=== PATIENT | male | born 1950 | race Caucasian/White ===

== ENCOUNTER 2018-09-27 10:15 | Inpatient (IN) ==
--- NOTE | 2018-09-25 12:12 | Anesthesiology Consultation ---
Date of Service September 25, 2018 Assessment & Plan (1) Encounter for pre-operative examination: *H/O DIFFICULT INTUBATION WITH LUMBAR SURGERY ~2010 PER PATIENT. RECORDS NOT AVAILABLE. PER PT SURGERY PROCEEDED BUT HE WAS TOLD HE WAS A DIFFICULT INTUBATION. REPORTS HE HAD SUBSEQUENT SURGERIES WITHOUT PROBLEMS WITH ANESTHESIA.* Chart Review Chart Review: Acceptable Risk for Surgery and Patient NOT seen in Pre Admission Testing History Surgery Operation Date: 09/27/18 10:55 Proposed Procedures p L4-L5, L5-S1 Revision Decompression and Fusion - Ned Diaz DO Height/Weight Height: 5 ft 11 in Weight: 117.934 kg Allergies Allergy/AdvReac Type Severity Reaction Status Date / Time latex Allergy Mild BLISTERS Verified 09/08/18 12:02 ciprofloxacin [From Cipro] Allergy Unknown SWELLING Verified 09/08/18 12:02 ALL OVER adhesive tape Allergy Blister Verified 09/08/18 12:02 Medications Home Medications Medication Instructions Recorded Confirmed Last Taken doxazosin 2 mg PO HS 05/21/18 09/08/18 06/26/18 19:00 fluticasone propionate [Flonase 2 spray INTRANASAL QPM 05/21/18 09/08/18 06/26/18 19:00 Allergy Relief] levothyroxine 50 mcg PO QAM 05/21/18 09/08/18 06/26/18 07:00 linaclotide 290 mcg PO QAM 05/21/18 09/08/18 06/26/18 07:00 metolazone 5 mg PO QAM 05/21/18 09/08/18 06/26/18 07:00 potassium chloride 80 mg PO BID 05/21/18 09/08/18 06/26/18 19:00 atorvastatin 20 mg PO PM 06/13/18 09/08/18 06/26/18 19:00 omeprazole 20 mg PO BID 06/13/18 09/08/18 06/27/18 03:00 torsemide 80 mg PO QAM 06/13/18 09/08/18 06/26/18 07:00 ascorbic acid (vitamin C) [Vitamin 1,000 mg PO DAILY 09/03/18 09/08/18 Unknown C] eplerenone 50 mg PO DAILY 09/08/18 09/08/18 Unknown febuxostat 80 mg PO DAILY 09/08/18 09/08/18 Unknown oxycodone-acetaminophen [Percocet] 2 tab PO Q4H PRN 09/08/18 09/08/18 Unknown Past Medical History Medical History CKD (chronic kidney disease), stage III (Chronic) Neurogenic claudication due to lumbar spinal stenosis (Chronic) Constipation (Chronic) Gout (Chronic) Gastro-esophageal reflux (Chronic) Obesity (Chronic) Kidney mass (Chronic) BPH (benign prostatic hyperplasia) (Chronic) Lumbar spinal stenosis (Chronic) Bilateral lower extremity edema (Chronic) Hypothyroidism (Chronic) Lumbosacral radiculopathy (Acute) Chronic back pain Cyst of left kidney UNDER OBSERVATION Depression Emphysema lung CXR 06/05/18 WNL Hyperlipidemia Hypertension Past Family History Family History Mother Family history of diabetes mellitus Aunt Family history of diabetes mellitus Past Surgical History Surgical History Status post total shoulder arthroplasty (Resolved) Hx laparoscopic cholecystectomy (Resolved) History of hernia repair (Resolved) Previous back surgery (Resolved) X 3-[place] [facility] AND PAST 2 [facility] 2010 History of removal of testicle (Resolved) HARDENED TESTICLE-"BENIGN" History of spinal surgery (Chronic) Difficult airway for intubation TOLD HE HAS A "RESTRICTED AIRWAY" WITH BACK SURGERY-[facility]-2010? WAS ABLE TO DO SURGERY BUT PT WAS TOLD INTUBATION MORE DIFFICULT THAN EXPECTED AT THE TIME PER PT. History of arthroscopy LEFT KNEE-NO PROBLEMS WITH ANESTHESIA (AFTER 2010) History of total hip arthroplasty LEFT History of total shoulder replacement LEFT [facility]-NO PROBLEMS WITH ANESTHESIA-(AFTER 2010) Past Anesthesia History Difficult Airway Social History Smoking Status: Former smoker tobacco type: cigarettes Do You Dip or Chew Tobacco: Yes (1 CAN/3 DAYS (ADVISED)) Smoking End Date: QUIT 37 YEARS AGO Hx Alcohol Use: No Hx Substance Use: No substance use type: does not use and prescription drug Testing Electrocardiogram Date: 06/05/18 Findings: + NSR @ (67) and + RBBB Chest X-Ray Date: 06/05/18 Findings: + NAD Laboratory Results 09/16/18 WBC: 9.5 H/H: 15.3/44.6 PLATELETS: 330 SODIUM: 139 POTASSIUM: 3.3 CHLORIDE: 97 CO2: 28 BUN: 23 CREATININE: 1.1 GLUCOSE: 119 Repeat K+ 04/05 = 3.8 PT: 13.7 INR: 1.0
[~2018-09-27 10:15] MED LIST: ACETAMINOPHEN 500 MG TAB PO SCH; ATROPINE SULFATE 0.1 MG/ML 10ML SYR IV PRN; CEFAZOLIN 3000MG 65 ML IV SCH; CeleBREX 200 MG CAP PO SCH; GABAPENTIN 300 MG PO SCH; LABETALOL HCL IV 5 MG/ML 20ML IV PRN; LR 15ML/HR IV SCH; MEPERIDINE HCL 25 MG/ML CARP IV PRN; ONDANSETRON INJ 2 MG/ML 2 ML VIAL IV PRN; PHENYLEPHRINE 100MCG/ML 5ML SYR IV PRN; ePHEDrine sulfate 50 MG/ML AMP IV PRN
--- NOTE | 2018-09-27 11:08 | History & Physical Bridge Note ---
Date of Service September 27, 2018 History & Physical Bridge Note I have examined the patient, reviewed the History & Physical and in the interval since the performance of the History & Physical I have noted the following changes of clinical significance: no changes noted
--- NOTE | 2018-09-27 11:10 | History & Physical Report ---
Date of Service September 27, 2018 Assessment & Plan (1) Lumbar spinal stenosis: Revision decompression and fusion L4-5 L5-S1 Present on Admission?: Yes History of Present Illness Chief Complaint: Back and leg pain Primary Care Provider: Tyrone Fuller MD 68-year-old male well-known to me that presents with chronic persistent back and leg pain. After failing extensive course of nonoperative care is here for surgical intervention. Allergies Allergy/AdvReac Type Severity Reaction Status Date / Time latex Allergy Mild BLISTERS Verified 09/27/18 10:29 ciprofloxacin [From Cipro] Allergy Unknown SWELLING Verified 09/27/18 10:29 ALL OVER adhesive tape Allergy Blister Verified 09/27/18 10:29 Home Medications Home Medications Medication Instructions Recorded Confirmed Type doxazosin 2 mg PO HS 05/21/18 09/27/18 History fluticasone propionate [Flonase 2 spray INTRANASAL QPM 05/21/18 09/27/18 History Allergy Relief] levothyroxine 50 mcg PO QAM 05/21/18 09/27/18 History linaclotide 290 mcg PO QAM 05/21/18 09/27/18 History metolazone 5 mg PO QAM 05/21/18 09/27/18 History potassium chloride 80 mg PO BID 05/21/18 09/27/18 History atorvastatin 20 mg PO PM 06/13/18 09/27/18 History omeprazole 20 mg PO BID 06/13/18 09/27/18 History torsemide 80 mg PO QAM 06/13/18 09/27/18 History ascorbic acid (vitamin C) [Vitamin 1,000 mg PO DAILY 09/03/18 09/27/18 History C] eplerenone 50 mg PO DAILY 09/08/18 09/08/18 History febuxostat 80 mg PO DAILY 09/08/18 09/08/18 History oxycodone-acetaminophen [Percocet] 2 tab PO Q4H PRN 09/08/18 09/08/18 History Past Med/Surg History Medical History CKD (chronic kidney disease), stage III (Chronic) Neurogenic claudication due to lumbar spinal stenosis (Chronic) Constipation (Chronic) Gout (Chronic) Gastro-esophageal reflux (Chronic) Obesity (Chronic) Kidney mass (Chronic) BPH (benign prostatic hyperplasia) (Chronic) Lumbar spinal stenosis (Chronic) Bilateral lower extremity edema (Chronic) Hypothyroidism (Chronic) Lumbosacral radiculopathy (Acute) Chronic back pain Cyst of left kidney UNDER OBSERVATION Depression Emphysema lung CXR 06/05/18 WNL Hyperlipidemia Hypertension Surgical History Status post total shoulder arthroplasty (Resolved) Hx laparoscopic cholecystectomy (Resolved) History of hernia repair (Resolved) Previous back surgery (Resolved) X 3-[place] [facility] AND PAST 2 [facility] 2010 History of removal of testicle (Resolved) HARDENED TESTICLE-"BENIGN" History of spinal surgery (Chronic) Difficult airway for intubation TOLD HE HAS A "RESTRICTED AIRWAY" WITH BACK SURGERY-[facility]-2010? WAS ABLE TO DO SURGERY BUT PT WAS TOLD INTUBATION MORE DIFFICULT THAN EXPECTED AT THE TIME PER PT. 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
[2018-09-27] MEDS ORDERED: BACITRACIN INJ 50,000 UNIT VIAL ONE (11:13)
[2018-09-27] MEDS ORDERED: BUPIVACAINE/EPINEPHRINE 0.5% MPF 1:200,000 30 ML VIAL ONE (11:13)
[2018-09-27] MEDS ORDERED: LIDOCAINE HCL 2% 2 ML VIAL/AMP(20MG/ML) INFIL ONE (11:21)
[2018-09-27] MEDS ORDERED: fentaNYL citrate 100 MCG/2 ML VIAL ONE ×3 (11:21→13:59)
[2018-09-27] MEDS ORDERED: PROPOFOL IV EMULSION 10 MG/ML 20 ML VIAL IV ONE (11:21)
[2018-09-27] MEDS ORDERED: SUCCINYLCHOLINE CHLORIDE 20 MG/ML 10 ML VIAL ONE ×2 (11:21→11:38)
[2018-09-27] MEDS ORDERED: SUCCINYLCHOLINE 100MG/5ML SYR ONE (11:38)
[2018-09-27] MEDS ORDERED: FLOSEAL HEMOSTATIC MATRIX 10ML TOP ONE (12:32)
[2018-09-27] MEDS ORDERED: ONDANSETRON INJ 2 MG/ML 2 ML VIAL ONE (13:13)
[2018-09-27] MEDS ORDERED: DEXAMETHASONE SOD INJ 4 MG/ML VIAL ONE (13:13)
[2018-09-27] MEDS ORDERED: CISATRACURIUM BESYLATE IV SOLN 2 MG/ML 10 ML VIAL IV ONE (13:13)
[2018-09-27] MEDS ORDERED: GLYCOPYRROLATE 0.2 MG/ML VIAL ONE (13:13)
[2018-09-27] MEDS ORDERED: NEOSTIGMINE METHYLSULFATE 1 MG/ML 10ML VIAL ONE (13:13)
--- NOTE | 2018-09-27 14:07 | Fluoroscopy Report ---
FL lumbar spine 2-3V CLINICAL HISTORY: L4-L5 DECOMPRESSION COMPARISON STUDY: CT scan dated 08/23/2018 FLUOROSCOPY TIME: 26 seconds. NUMBER OF FLUOROSCOPIC IMAGES: 2 FINDINGS: 2 intraoperative fluoroscopic spot images reveal postsurgical changes of an L4-5 discectomy and interbody fusion. There is posterior fusion with pedicle screw fixation with pedicle screws at t he L4, L5 and S1 levels with adjoining spinal rods. IMPRESSION: Postsurgical changes of an L4-5 compression and L4-S1 pedicle screw fusion Electronically signed by: Caden Valencia M.D. 09/27/2018 2:06 PM
--- NOTE | 2018-09-27 14:17 | Operative Report ---
Post Operative Report Pre & Post Diagnosis Operation Date: 09/27/18 10:55 Pre-Op Diagnosis: Neurogenic Claudication with Spinal Stenosis L4-L5, L5-S1 Post-Op Diagnosis: Neurogenic Claudication with Spinal Stenosis L4-L5, L5-S1 Procedure Operation Date: 09/27/18 10:55 Actual Procedures #1 revision decompression medial facetectomies foraminotomies L4-5 L5-S1 per #2 posterior spinal fusion L4-5 L5-S1 per #3 placed posterior instrumentation L4-5 L5-S1. #4 interbody fusion L4-5 per #5 placement of titanium 12 x 26 mm cage at L4-5. #6 placement of local autograft in the posterior lateral gutters. #7 placement infuse collagen sponge bone mass graft in the posterior lateral gutters and ostial amp and interbody space. Surgeon Ned Diaz DO Ash Conveyor Operator None Estimated Blood Loss 250 Findings Consistent with Post-Op Diagnosis Specimens None Description of Procedure Patient was met with preoperatively case discussed all questions addressed. Aft er informed consent obtained patient was taken to the operative suite underwent intubation and placed in a prone position on the Emre table on top of the Ariel frame. All bony prominences well-padded eyes inspected to ensure no external pressure placed upon the. This point the lumbar spine was prepped and draped in the normal sterile fashion. Sharp dissection with the assistance of Bovie cautery was performed down to and exposing the l remaining lamina and transverse processes of L4-L5 and sacral ala bilaterally. Then performed revision decompression with medial facetectomies at L4-5 L5-S1. Pedicle screws were then placed in L4-L5 and S1 levels bilaterally with assistance of fluoroscopy and the appropriate size ginette placed by way of a transforaminal approach on the right complete discectomy of L4-5 was performed and endplates curetted to subcortical bleeding bone and a 12 x 26 mm titanium cage filled with osteo-amp bone graft tapped in position. The rods were then locked in final position bilaterally. The transverse processes of L4-L5 and sacral ala bur to subcortical bleeding bone. Infuse collagen sponge mass graft local autograft was placed in the posterior lateral gutters. 15 round MARIBEL drain inserted. Incision was then closed with 1 Vicryl in the fascia 2-0 Vicryl subcutaneous and 4 Monocryl for final skin closure. Steri-Strip sterile dressings placed. Patient will continue to PACU stable condition. I attest to the content of the Intraoperative Record and any orders documented therein. Any exceptions are noted below.
[2018-09-27] MEDS: fentaNYL citrate 100 MCG/2 ML VIAL IV PRN ×4 (14:39→15:02)
[2018-09-27] MEDS: HYDROmorphone INJ 1 MG/ML SYRINGE IV PRN ×2 (15:08→15:13)
--- NOTE | 2018-09-27 15:23 | Anesthesiology Progress Note ---
Date of Service September 27, 2018 Anesthesia Post Procedure Vital Signs Vital Signs: Temp Pulse Pulse Resp BP Pulse Ox 09/27/18 15:15 80 20 126/86 95 09/27/18 15:05 77 15 128/83 95 09/27/18 14:55 78 15 132/84 97 09/27/18 14:45 76 15 129/85 97 09/27/18 14:35 76 13 138/89 98 09/27/18 14:27 36.2 C L 79 12 142/91 H 97 09/27/18 10:37 36.7 C 88 18 133/94 94 Pain Intensity Lower Back: Pain Intensity: 5 Notes Mental Status: alert / awake / arousable Patient Amnestic to Procedure: Yes Nausea / Vomiting: adequately controlled Pain: adequately controlled Airway Patency, RR, SpO2: stable & adequate BP & HR: stable & adequate Hydration State: stable & adequate Anesthetic Complications: no major complications apparent and Pt Satisfied with anesthetic care
[2018-09-27] MEDS ORDERED: BISACODYL 10 MG SUPP PR PRN (15:51)
[2018-09-27] MEDS ORDERED: ALUMINUM/MAGNESIUM SUSP 30 ML UDC PO PRN (15:51)
[2018-09-27] MEDS ORDERED: FAMOTIDINE 20 MG TAB PO PRN (15:51)
[2018-09-27] MEDS ORDERED: DO NOT ADMINISTER PNEUMOCOCCAL VACCINE PRN (15:51)
[2018-09-27] MEDS ORDERED: ACETAMINOPHEN 500 MG TAB PO PRN (15:51)
[2018-09-27] MEDS ORDERED: ACETAMINOPHEN 1,000 MG/100 ML VIAL IV PRN (15:51)
[2018-09-27] MEDS ORDERED: TRAMADOL HCL 50 MG TABLET PO PRN (15:51)
[2018-09-27] MEDS ORDERED: METOCLOPRAMIDE HCL INJ 5 MG/ML 2 ML VIAL IV PRN (15:51)
[2018-09-27] MEDS ORDERED: MAGNESIUM HYDROXIDE SUSP 30 ML UDC PO PRN (15:51)
[2018-09-27] MEDS ORDERED: ONDANSETRON INJ 2 MG/ML 2 ML VIAL IV PRN (15:51)
[2018-09-27] MEDS ORDERED: LORazepam 0.5 MG/1 ML VIAL IV PRN (15:51)
[2018-09-27] MEDS ORDERED: LORazepam 0.5 MG TAB PO PRN (15:51)
[2018-09-27] MEDS ORDERED: ONDANSETRON 4 MG TAB PO PRN (15:51)
[2018-09-27] MEDS ORDERED: PROMETHAZINE HCL 12.5 MG in SODIUM CHLORIDE 0.9% 50 ML IV PRN (15:51)
[2018-09-27] MEDS ORDERED: DO NOT ADMINISTER FLU VACCINE PRN (15:51)
[2018-09-27] MEDS ORDERED: HYDROmorphone INJ 0.5 MG/0.5 ML SYR IV PRN (15:51)
[2018-09-27] MEDS ORDERED: SOD PHOSPHATE/SOD BIPHOSPHATE ENEMA 132 ML BTL PR PRN (15:51)
--- NOTE | 2018-09-27 16:45 | Consultation ---
Date of Consultation September 27, 2018 Assessment & Plan (1) Status post lumbar surgery: Post op day# 0 S/P Lumbar decompression and fusion by Dr Diaz EBL #250ml -pain management per ortho -wound management per ortho -PT/OT as appropriate -DVT prophylaxis per ortho -incentive spirometry -monitor H&H for acute blood loss anemia (2) CKD (chronic kidney disease), stage III: Cr was 2 on 06/28/18 -monitor renal functions -limit/avoid NSAIDs (3) Hypothyroidism: -continue levothyroxine (4) Gastro-esophageal reflux: -continue PPI (5) Constipation: -continue linzess (6) Bilateral lower extremity edema: -hold metolazone, eplerenone, torsemide and reassess tomorrow (7) BPH (benign prostatic hyperplasia): -continue doxazosin DVT Prophylaxis -SCDs Follows with Dr Tyrone Fuller in [place] for routine care Pt was seen with Dr Bauer. See addendum Pt will be followed by Dr Hyde tomorrow. Thank you for this consultation. We will follow the patient with you during their hospital stay. You can reach a [facility] via pager @ [phone]. Supervising Physician Co-Signing Physician Notes Care coordinated with Shama CARROLL . Agree with above note. Patient seen and examined. Please refer to her notes for full details. Vital signs reviewed. Physical exam: General exam: Alert and oriented. Not in acute distress. CVS: S1 and S2 heard, regular rate and rhythm, no murmurs. RS: Clear to auscultation, no wheezing or crackles. ABD: Soft, bowel sounds present, nontender, no distention. SODA FOUNTAIN OPERATOR: Nonfocal. Musculoskeletal s/p back surgery EXT: No edema, no erythema. Labs: Reviewed. Assessment and plan: s/p Back Surgery tolerated procedure ok management as per ortho CKD stage 3 avoid nephrotoxic agents follow labs Lower ext edema holding diuretics can restart in am Other diagnosis and plan of care as per Shama newman MD. History of Present Illness Reason for Consultation: Post op medical management Attending Physician: Ned Diaz DO History of Present Illness Pt is 68 y/o M with PMH BLE edema, CKD III, obesity, GERD, hypothyroidism, chronic constipation, BPH seen in consult for post op medical management s/p decompression and fusion L4-S1 by Dr Diaz today. Post op pt doing well. Pain is controlled. Denies paresthesias or pain to BLE. Has yap cath in place. Last BM this am. Denies diaphoresis, N/V, MUÑOZ, dizziness, CP, SOB, cough, sore throat, choking, abdominal pain, rashes. Allergies Allergy/AdvReac Type Severity Reaction Status Date / Time latex Allergy Mild BLISTERS Verified 09/27/18 10:29 ciprofloxacin [From Cipro] Allergy Unknown SWELLING Verified 09/27/18 10:29 ALL OVER adhesive tape Allergy Blister Verified 09/27/18 10:29 Home Medications Home Medications Medication Instructions Recorded Confirmed Type doxazosin 2 mg PO HS 05/21/18 09/27/18 History fluticasone propionate [Flonase 2 spray INTRANASAL QPM 05/21/18 09/27/18 History Allergy Relief] levothyroxine 50 mcg PO QAM 05/21/18 09/27/18 History linaclotide 290 mcg PO QAM 05/21/18 09/27/18 History metolazone 5 mg PO QAM 05/21/18 09/27/18 History potassium chloride 80 mg PO BID 05/21/18 09/27/18 History atorvastatin 20 mg PO PM 06/13/18 09/27/18 History omeprazole 20 mg PO BID 06/13/18 09/27/18 History torsemide 80 mg PO QAM 06/13/18 09/27/18 History ascorbic acid (vitamin C) [Vitamin 1,000 mg PO DAILY 09/03/18 09/27/18 History C] eplerenone 50 mg PO DAILY 09/08/18 09/27/18 History febuxostat 80 mg PO DAILY 09/08/18 09/27/18 History oxycodone-acetaminophen [Percocet] 2 tab PO Q4H PRN 09/08/18 09/27/18 History Patient History Medical History CKD (chronic kidney disease), stage III (Chronic) Neurogenic claudication due to lumbar spinal stenosis (Chronic) Constipation (Chronic) Gout (Chronic) Gastro-esophageal reflux (Chronic) Obesity (Chronic) Kidney mass (Chronic) BPH (benign prostatic hyperplasia) (Chronic) Lumbar spinal stenosis (Chronic) Bilateral lower extremity edema (Chronic) Hypothyroidism (Chronic) Lumbosacral radiculopathy (Acute) Chronic back pain Cyst of left kidney UNDER OBSERVATION Depression Emphysema lung CXR 06/05/18 WNL Hyperlipidemia Hypertension Surgical History Status post total shoulder arthroplasty (Resolved) Hx laparoscopic cholecystectomy (Resolved) History of hernia repair (Resolved) Previous back surgery (Resolved) X 3-[place] [facility] AND PAST 2 [facility] 2010 History of removal of testicle (Resolved) HARDENED TESTICLE-"BENIGN" History of spinal surgery (Chronic) Difficult airway for intubation TOLD HE HAS A "RESTRICTED AIRWAY" WITH BACK SURGERY-[facility]-2010? WAS ABLE TO DO SURGERY BUT PT WAS TOLD INTUBATION MORE DIFFICULT THAN EXPECTED AT THE TIME PER PT. 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 Physical Exam Vital Signs (Past 24 Hours): Last Vital Signs Temp 36.4 C L 09/27/18 16:25 Pulse 80 09/27/18 16:25 Resp 16 09/27/18 16:25 BP 115/77 09/27/18 16:25 Pulse Ox 93 09/27/18 16:25 Physical Exam: General: no acute distress, WDWN Head: normocephalic, atraumatic Eyes: conjunctiva non-injected, anicteric ENT: normal inspection external ears, nose, mucous membranes moist Neck: supple, trachea midline Lungs: clear, no respiratory distress, no wheezing/rhonchi/rales CV: RRR, no murmur Abd: normal BS, soft, non-tender Ext: no cyanosis, no calf tenderness, no significant LE edema, bilateral pushes and pulls intact Neuro: A&O x 3, no focal deficits noted, normal affect, good spirits Skin: warm, dry
[2018-09-27] MEDS: SODIUM CHLORIDE 0.9% 1000ML 1,000 ML IV SCH ×2 (16:52→23:41)
[2018-09-27] MEDS: KETOROLAC TROMETHAMINE 15 MG/ML VIAL IV SCH ×2 (16:52→21:52)
[2018-09-27] MEDS: OXYCODONE HCL IR 5 MG TAB (IMMEDIATE RELEASE) PO PRN (19:56)
[2018-09-27] MEDS: CEFAZOLIN 2000MG 2,000 MG/15 ML SYR IV SCH (20:08)
[2018-09-27] MEDS: ATORVASTATIN 20 MG TAB PO SCH (20:09)
[2018-09-27] MEDS: DOCUSATE SODIUM/SENNA 50/8.6MG TAB PO SCH (20:09)
[2018-09-27] MEDS: PANTOprazole 40 MG TAB PO SCH (20:09)
[2018-09-27] MEDS: DOXAZosin MESYLATE TAB 2 MG TAB PO SCH (20:09)
[2018-09-27] MEDS: POTASSIUM CHLORIDE 20 MEQ TABCR PO SCH (20:09)
[2018-09-27] MEDS: FLUTICASONE PROPIONATE NA SPR 16 GM BTL SCH (20:10)
[2018-09-28] MEDS: KETOROLAC TROMETHAMINE 15 MG/ML VIAL IV SCH ×2 (04:20→08:59)
[2018-09-28] MEDS: CEFAZOLIN 2000MG 2,000 MG/15 ML SYR IV SCH (04:20)
[2018-09-28] MEDS: LEVOTHYROXINE SODIUM 50 MCG TABLET PO SCH (05:56)
[2018-09-28] MEDS: POLYETHYLENE (MIRALAX) 17 GM PACK PO SCH ×4 (05:56→23:15)
[2018-09-28] MEDS: SODIUM CHLORIDE 0.9% 1000ML 1,000 ML IV SCH (05:57)
[2018-09-28 06:09] LABS: Hematocrit (blood only) 38.5 % (42-52); Immature Granulocytes # (auto) 0.02 K/uL (0.00-0.02); Immature Granulocytes % (auto) 0.2 %; Lymphocytes # (auto) 0.58 K/uL (1.2-3.4); Lymphocytes % (auto) 4.8 %; Mean Corpuscular Hgb Conc 33.8 g/dL (32-36); Mean Corpuscular Volume 93.2 fL (80-100); Mean Platelet Volume 10.3 fL (7.4-10.4); Monocytes # (auto) 0.61 K/uL (0.11-0.59); Neutrophils # (auto) 10.88 K/uL (1.4-6.5); Platelet Count 185 K/uL (130-400); RDW Coefficient of Variation 12.9 % (11.5-14.5); RDW Standard Deviation 43.9 fL (36.4-46.3); Red Blood Count 4.13 M/uL (4.7-6.1); White Blood Count 12.09 K/uL (4.8-10.8)
[2018-09-28 06:35] LABS: BUN Creatinine Ratio 13.8 (10-20); Calcium 8.2 mg/dl (8.5-10.1); Creatinine Clr Calc Pharmacy 54.3 ml/min; Est GFR (African American) 47.3; Est GFR (Non-African American) 40.8; Potassium 3.5 mmol/L (3.5-5.1)
[2018-09-28] MEDS: LINZESS PO SCH (07:14)
[2018-09-28] MEDS: FEBUXOSTAT 40 MG TABLET PO SCH (08:59)
[2018-09-28] MEDS ORDERED: metOLazone 5 MG TABLET PO SCH (09:00)
[2018-09-28] MEDS: PANTOprazole 40 MG TAB PO SCH ×2 (09:00→20:14)
[2018-09-28] MEDS: ASCORBIC ACID 500 MG TAB PO SCH (09:00)
[2018-09-28] MEDS ORDERED: TORSEMIDE 20 MG TAB PO SCH (09:00)
[2018-09-28] MEDS: POTASSIUM CHLORIDE 20 MEQ TABCR PO SCH ×2 (09:00→20:13)
--- NOTE | 2018-09-28 09:25 | Orthopedic Progress Note ---
Date of Service September 28, 2018 Assessment & Plan (1) Lumbosacral radiculopathy: At this point will initiate physical therapy advance his bowel regimen anticipate discharge home in the next few days. Present on Admission?: Yes Physical Exam Vital Signs (Past 24 Hours): Last Vital Signs Temp 36.5 C 09/28/18 07:24 Pulse 72 09/28/18 07:24 Resp 18 09/28/18 07:24 BP 101/67 09/28/18 07:24 Pulse Ox 92 09/28/18 07:24 Physical Exam: Patient is good strength testing appears quite comfortable
--- NOTE | 2018-09-28 12:52 | Anesthesiology Progress Note ---
Date of Service September 28, 2018 Anesthesia Post Procedure Vital Signs Vital Signs: Temp Pulse Pulse Resp BP BP Pulse Ox 09/28/18 11:00 93 09/28/18 07:24 36.5 C 72 18 101/67 92 09/28/18 03:17 36.4 C L 76 16 102/69 92 09/27/18 23:14 36.5 C 79 16 104/66 91 09/27/18 19:35 36.5 C 89 16 114/75 91 09/27/18 18:00 36.6 C 95 H 20 113/71 94 09/27/18 16:57 36.5 C 81 16 112/79 95 09/27/18 16:25 36.4 C L 80 16 115/77 93 09/27/18 15:25 36.1 C L 82 17 129/83 95 09/27/18 15:15 80 20 126/86 95 09/27/18 15:05 77 15 128/83 95 09/27/18 14:55 78 15 132/84 97 09/27/18 14:45 76 15 129/85 97 09/27/18 14:35 76 13 138/89 98 09/27/18 14:27 36.2 C L 79 12 142/91 H 97 Pain Intensity Lower Back: Pain Intensity: 2 Notes Mental Status: alert / awake / arousable and participated in evaluation Patient Amnestic to Procedure: Yes Nausea / Vomiting: adequately controlled Pain: adequately controlled Airway Patency, RR, SpO2: stable & adequate BP & HR: stable & adequate Hydration State: stable & adequate Anesthetic Complications: no major complications apparent and Pt Satisfied with anesthetic care
--- NOTE | 2018-09-28 18:30 | Hospitalist Progress Note ---
Date of Service September 28, 2018 Assessment & Plan (1) Status post lumbar surgery: S/P daksha 1 Lumbar decompression and fusion by Dr Diaz Continue pain control Incentive spirometry PT/OT Monitor CBC (2) CKD (chronic kidney disease), stage III: Cr was 2 on 06/28/18 Creatinine 1.6 today Avoid nephrotoxic agents Monitor BMP (3) Hypothyroidism: continue levothyroxine (4) Gastro-esophageal reflux: Continue PPI (5) Constipation: continue linzess (6) Bilateral lower extremity edema: Will resume metolazone, eplerenone, torsemide in am (7) BPH (benign prostatic hyperplasia): continue doxazosin DVT Prophylaxis as per ortho CODE STATUS FULL CODE Subjective Pt was seen and examined Sitting in chair with no distress Pt said that he feels fine He said that he does not have any pain He said that he is able to feel his Leg now He said that he walked in the hallway Denies any chest pain, palpitation and sob Physical Exam Vital Signs (Past 24 Hours): Last Vital Signs Temp 36.5 C 09/28/18 15:07 Pulse 66 09/28/18 15:07 Resp 18 09/28/18 15:07 BP 105/70 09/28/18 15:07 Pulse Ox 94 09/28/18 15:07 Physical Exam: General- No acute distress Head- atraumatic Eyes- PERRL, EOMI, ENT- oropharynx clear Neck- supple, no JVD Lungs- clear to auscultation Heart- regular rhythm; no murmur Abdomen- normal bowel sounds, soft, nontender Extremities- no calf tenderness Neuro- alert, oriented x 3; PERRL, EOMI; no facial palsy; no dysarthria Skin- warm & dry
[2018-09-28] MEDS: DOXAZosin MESYLATE TAB 2 MG TAB PO SCH (20:13)
[2018-09-28] MEDS: FLUTICASONE PROPIONATE NA SPR 16 GM BTL SCH (20:13)
[2018-09-28] MEDS: ATORVASTATIN 20 MG TAB PO SCH (20:14)
[2018-09-28] MEDS: DOCUSATE SODIUM/SENNA 50/8.6MG TAB PO SCH (20:14)
[2018-09-28] MEDS: OXYCODONE HCL IR 5 MG TAB (IMMEDIATE RELEASE) PO PRN (20:49)
[2018-09-29] MEDS: OXYCODONE HCL IR 5 MG TAB (IMMEDIATE RELEASE) PO PRN ×3 (02:23→17:48)
[2018-09-29] MEDS: POLYETHYLENE (MIRALAX) 17 GM PACK PO SCH ×2 (05:57→12:14)
[2018-09-29] MEDS: LEVOTHYROXINE SODIUM 50 MCG TABLET PO SCH (05:57)
[2018-09-29] MEDS: LINZESS PO SCH (07:38)
[2018-09-29] MEDS: PANTOprazole 40 MG TAB PO SCH ×2 (08:40→20:36)
[2018-09-29] MEDS: FEBUXOSTAT 40 MG TABLET PO SCH (08:40)
[2018-09-29] MEDS: ASCORBIC ACID 500 MG TAB PO SCH (08:40)
[2018-09-29] MEDS: POTASSIUM CHLORIDE 20 MEQ TABCR PO SCH ×2 (08:40→20:34)
--- NOTE | 2018-09-29 11:34 | Orthopedic Progress Note ---
Date of Service September 29, 2018 Assessment & Plan (1) Lumbosacral radiculopathy: This time we will continue physical therapy and monitor his MARIBEL output. We anticipate discharge home tomorrow. Present on Admission?: Yes Physical Exam Vital Signs (Past 24 Hours): Last Vital Signs Temp 36.4 C L 09/29/18 07:35 Pulse 61 09/29/18 07:35 Resp 18 09/29/18 07:35 BP 116/73 09/29/18 07:35 Pulse Ox 97 09/29/18 07:35 Physical Exam: Patient is sitting in chair at the bedside. Is good strength testing. Appears comfortable.
--- NOTE | 2018-09-29 19:15 | Hospitalist Progress Note ---
Date of Service September 29, 2018 Assessment & Plan (1) Status post lumbar surgery: S/P daksha 2 Lumbar decompression and fusion by Dr Diaz Continue pain control Incentive spirometry PT/OT Monitor CBC (2) CKD (chronic kidney disease), stage III: Cr was 2 on 06/28/18 Creatinine improved to 1.6 Avoid nephrotoxic agents Stable (3) Hypothyroidism: continue levothyroxine (4) Gastro-esophageal reflux: Continue PPI (5) Constipation: continue linzess (6) Bilateral lower extremity edema: Resume in torsemide in am Will hold metolazone, eplerenone for now (7) BPH (benign prostatic hyperplasia): continue doxazosin DVT Prophylaxis as per ortho CODE STATUS FULL CODE Subjective Pt was seen and examined Sitting in chair no distress Pt said that he feels fine He said he has been walking in the hallway Denies any chest pain, palpitation, dizziness and SOB Physical Exam Vital Signs (Past 24 Hours): Last Vital Signs Temp 36.5 C 09/29/18 15:19 Pulse 65 09/29/18 15:19 Resp 18 09/29/18 15:19 BP 134/79 09/29/18 15:19 Pulse Ox 96 09/29/18 15:19 Physical Exam: General- No acute distress Head- atraumatic Eyes- PERRL, EOMI, ENT- oropharynx clear Neck- supple, no JVD Lungs- clear to auscultation Heart- regular rhythm; no murmur Abdomen- normal bowel sounds, soft, nontender Extremities- no calf tenderness Neuro- alert, oriented x 3; PERRL, EOMI; no facial palsy; no dysarthria Skin- warm & dry
[2018-09-29] MEDS: DOCUSATE SODIUM/SENNA 50/8.6MG TAB PO SCH (20:34)
[2018-09-29] MEDS: DOXAZosin MESYLATE TAB 2 MG TAB PO SCH (20:35)
[2018-09-29] MEDS: ATORVASTATIN 20 MG TAB PO SCH (20:35)
[2018-09-29] MEDS: FLUTICASONE PROPIONATE NA SPR 16 GM BTL SCH (20:36)
[2018-09-30] MEDS: LEVOTHYROXINE SODIUM 50 MCG TABLET PO SCH (05:52)
[2018-09-30] MEDS: OXYCODONE HCL IR 5 MG TAB (IMMEDIATE RELEASE) PO PRN ×2 (07:11→11:29)
[2018-09-30] MEDS: LINZESS PO SCH (07:13)
[2018-09-30] MEDS: PANTOprazole 40 MG TAB PO SCH (08:40)
[2018-09-30] MEDS: FEBUXOSTAT 40 MG TABLET PO SCH (08:40)
[2018-09-30] MEDS: POTASSIUM CHLORIDE 20 MEQ TABCR PO SCH (08:40)
[2018-09-30] MEDS: ASCORBIC ACID 500 MG TAB PO SCH (08:41)
--- NOTE | 2018-09-30 10:15 | Discharge Summary ---
Date of Service September 30, 2018 Admission HPI Per Admitting Provider 68-year-old male well-known to me that presents with chronic persistent back and leg pain. After failing extensive course of nonoperative care is here for surgical intervention. Principal Diagnosis Lumbar spinal stenosis with radiculopathy Discharge Data Allergies Allergy/AdvReac Type Severity Reaction Status Date / Time latex Allergy Mild BLISTERS Verified 09/27/18 10:29 ciprofloxacin [From Cipro] Allergy Unknown SWELLING Verified 09/27/18 10:29 ALL OVER adhesive tape Allergy Blister Verified 09/27/18 10:29 Consultations 09/27/18 15:51 Consult Case Management - Discharge Planning Routine Consult Hospitalist Routine Procedures Performed Operation Date: 09/27/18 10:55 Actual Procedures p L4-L5, L5-S1 Revision Decompression and Instrumented Fusion with Application of Bone Morphogenetic Protein, Osteoamp Allograft and Interbody Fusion L4-L5(Not Applicable) - Ned Diaz DO Ordered Studies 09/27/18 10:55 FL fluoroscopy <1hr Routine FL lumbar spine 2-3V Routine Hospital Course (1) Lumbosacral radiculopathy: Patient underwent lumbar decompression fusion tolerated as well as taken the orthopedic floor postoperative. Postop day 1 he was up and ambulating nicely progressed to postop day 2. MARIBEL drain decreasing probably. Subsequently discharged home on postop day #3. Discharge orders and instructions found in the chart for further review. Total Time Total Time Spent Total Time Spent (In Minutes): Not applicable Discharge Plan Discharge Items Patient Disposition: Home - Self-Care Reason For Visit: LUMBAR SPINAL STENOSIS W/NEUROGENIC CLAUDICATION Discharge Diagnosis: lumbar stenosis Discharge Goals: Decrease discomfort Activity: Per 'Additional Instructions' section Non-emergency contact: Primary Care Provider Call non-emergency contact if: you have any medication questions Follow-up/Referrals: Tyrone Fuller MD [Primary Care Provider] - Diet: Regular Addtl Provider Instructions: ACTIVITY RECOMMENDATIONS: SELF CARE INSTRUCTIONS AFTER THORACIC/LUMBAR FUSIONS 1. You may walk to your tolerance. It is good exercise for your legs and back. Expect some back and intermittent leg aches and pains. 2. You may perform "counter-top" level activities (make a sandwich, kristen with a project, etc.). 3. No bending or lifting of more than 10 pounds or back twisting of any nature (roll like a log when turning in bed). 4. You may ride in a car for 20-30 minutes at a time. No driving until after your first visit with your doctor. 5. Frequent changes of position and restricting sitting to 30 minutes at a time will help limit the amount of back spasms and stiffness you may experience. 6. You may discontinue the use of ambulatory aids (cane, crutches, etc.) once your strength and confidence allow. 7. You may etcher machine the shower and let water strike your incision when you arrive home at least once daily. Do not take a tub bath, sit in a hot tub or go into a swimming pool until after your first recheck in the office. SPECIAL CARE INSTRUCTIONS: VERY IMPORTANT TO READ AND REVIEW A. Your surgical incision has been closed with a cosmetic suture under the skin that will dissolve in about 6 weeks. In 14 days, you can use a pair of clean scissors and cut the suture that is left outside of the skin at the ends of your incision. 1. The small skin tapes can be removed 7 days after surgery if they have not fallen off by that point. 2. You may keep the wound open to air as much as possible to promote healing after post-op day number 5 unless told otherwise by your doctor. 3. If you think the wound looks like it is becoming infected (redness or worsening drainage) and/or you are experiencing fever, chill or worsening back pain and muscle spasms, contact the office so that we may evaluate you as soon as possible. B. Complications are uncommon, but please contact us if you have any signs or symptoms of: 1. wound infection (fever higher than 102.5 degrees F, redness, separation of wound, drainage, or increasing pain from the incision) 2. blood clots in legs (pain, swelling, redness and warmth in legs) 3. urinary tract infection (fever higher than 102.5 degrees F, burning upon urination or increased frequency of urination) 4. nerve problems (inability to walk on your toes or heels, numbness, loss of bowel or bladder control) 5. any other symptoms that concern you C. Please call the office at if you have any concerns or questions about your operation or recovery. D. No smoking! Smoking drastically decreases the chance of a solid fusion. E. Do not take any anti-inflammatory medications (Indocin, Advil, Motrin, Aspirin, Naprosyn, etc.) as these may inhibit the chance of a solid fusion. Tylenol is okay to take for pain. MANAGING PAIN AFTER SPINAL SURGERY 1. Narcotic medication is intended for short-term use and will be provided for surgical pain. Surgical pain usually lasts for a period of 4-6 weeks. Narcotic medication includes Percocet, Vicodin, Darvocet, Tylenol #3 or Lortab. 2. Longer-term pain is more appropriately treated with non-narcotic medication such as Tylenol ES. 3. Muscle spasm is not appropriately treated with narcotics. Muscle relaxers such as Soma, Flexeril or Skelaxin can be used along with Tylenol ES. 4. Remember that we all live with some "aches and pains". This is not unusual or uncommon after an injury or as we get older. a. Back pain is expected and may include muscle spasms for 4 to 6 weeks after surgery. The pain should gradually improve. If the pain worsens for no apparent reason, please contact the office. b. Intermittent leg pain may also be experienced and should not be concerned about unless it worsens for no apparent reason. If so, please contact the office. 5. We will provide appropriate medication within the normal guidelines of their prescribed use. We will also be very cautious and aware of potential abuse and extended duration of patients' medication needs. a. Pain medications are for your comfort and to assist with sleep and rest so that the tissue can heal. They are not provided in order to return to normal activity and should not be used through the day. To do so or worsening pain at night can result from ongoing tissue damage and development of tolerance to the prescribed medicine. 6. Please allow 2-3 days to process refills. Prescriptions will not be mailed but must be picked up at the office. FOLLOW UP VISIT: Keep your scheduled follow-up appointment. Any questions, please call the office at . Prescriptions: New tramadol 50 mg Tablet 50 mg PO Q4H PRN (Reason: Pain, Moderate) Qty: 30 RF: 0 oxycodone 5 mg Tablet 5 mg PO Q4H PRN (Reason: Pain, Severe) Qty: 30 RF: 0 Continued omeprazole 20 mg Tablet,Delayed Release (Dr/Ec) 20 mg PO BID RF: 0 atorvastatin 20 mg Tablet 20 mg PO PM RF: 0 torsemide 20 mg Tablet 80 mg PO QAM RF: 0 ascorbic acid (vitamin C) [Vitamin C] 1,000 mg Tablet 1,000 mg PO DAILY RF: 0 metolazone 5 mg tablet 5 mg PO QAM RF: 0 levothyroxine 50 mcg tablet 50 mcg PO QAM RF: 0 doxazosin 2 mg tablet 2 mg PO HS RF: 0 linaclotide 290 mcg capsule 290 mcg PO QAM RF: 0 potassium chloride 20 mEq tablet,ER particles/crystals 80 mg PO BID RF: 0 fluticasone propionate [Flonase Allergy Relief] 50 mcg/actuation [place],Suspension 2 spray INTRANASAL QPM RF: 0 oxycodone-acetaminophen [Percocet] 5-325 mg Tablet 2 tab PO Q4H PRN (Reason: Pain) RF: 0 eplerenone 50 mg tablet 50 mg PO DAILY RF: 0 febuxostat 80 mg Tablet 80 mg PO DAILY RF: 0 Stand-Alone Forms: [facility], Op[facility] Pain [facility] Discharge Orders: Discharge Order (Routine); Ordered 09/30/18 Ordered By: Ned Diaz Admission Data Admit Date/Time: 09/27/18 14:22 Attending Provider: Ned Diaz Admit Provider: Ned Diaz Primary Care Provider: Tyrone Fuller Other Providers: Graham Johnson Wilkerson Service: Surgical Services Other Interventions: Discharge Summary Assessment (RN) Last Done: 09/30/18 08:53
[2018-09-30] MEDS ORDERED: TORSEMIDE 10 MG TAB PO SCH (11:30)
== END 2018-09-30 11:58 | disposition home or self-care (01) | DRG 455 ==
LOC: ASU 10:15 → 3E 14:22